=== PATIENT | male | born 1965 | race Caucasian/White ===

== ENCOUNTER → 2019-08-14 | Outpatient (CLI) | payer OTHER ==
[~2019-08-14] MED LIST: MECLIZINE 25 MG25 M1 PO; MICARDIS40 MG PO; ZANTAC
== END ==
LOC: M.ULTRA 07:52
PROVIDERS: ATTEND Family Medicine
DX: I65.23 Occlusion and stenosis of bilateral carotid arteries (principal); E78.49 Other hyperlipidemia

== ENCOUNTER → 2021-03-01 | Outpatient (CLI) | payer OTHER | LOC: M.RAD 09:07 | PROVIDERS: ATTEND Family Medicine | DX: M81.0 Age-related osteoporosis without current pathological fracture (principal) ==